=== PATIENT | female | born 1975 | race Hispanic/Latino ===

== ENCOUNTER → 2017-07-24 | Outpatient (CLI) | payer OTHER ==
--- NOTE | 2017-07-24 08:49 | Diagnostic Imaging Report ---
PROCEDURE:ABDOMINAL ULTRASOUND COMPARISON:None. INDICATIONS:Abdomen Pain FINDINGS: Liver: Measures 15.6 cm in the midclavicular line. Increased hepatic parenchymal echogenicity. No focal mass. Main portal vein: Measures 12 mm with normal hepatopetal flow. Gallbladder: Normal without evidence of stones. Common Bile Duct: Measures 3 mm with no echogenic filling defect. Sonographic Dobson's sign: Negative Right kidney: Measures 12.4 x 5.1 x 5.5 cm. No solid or cystic mass, echogenic calculi, or hydronephrosis. Normal parenchymal echogenicity. Left kidney: Measures 11.3 x 5.9 x 5.5 cm. No solid or cystic mass, echogenic calculi, or hydronephrosis. Normal parenchymal echogenicity. Spleen: Measures 9.4 x 3.3 x 3.7 cm. No mass. Pancreas: The visualized portions of the pancreas are normal. Inferior vena cava: Normal. Aorta: Normal. Ascites: None. CONCLUSION: 1. No acute sonographic abnormality. 2. Increased echogenicity of the liver compatible with fatty infiltration. Jozef Pineda D.O. Dictated by: Jozef Pineda D.O. on 07/24/2017 at 8:51 Electronically approved by: Jozef Pineda D.O. on 07/24/2017 at 8:51
== END ==
LOC: US 07:28
PROVIDERS: ATTEND Family Medicine
DX: R10.9 Unspecified abdominal pain (principal)
CPT/HCPCS: 76700

== ENCOUNTER → 2021-07-14 | Outpatient (CLI) | payer BC | LOC: US 07:32 | PROVIDERS: ATTEND Family Medicine | DX: R10.2 Pelvic and perineal pain (principal) | CPT/HCPCS: 76830; 76856 ==